=== PATIENT | male | born 1960 | race Caucasian/White ===

== ENCOUNTER 2019-03-18 08:13 | Outpatient (CLI) | payer OTHER ==
[~2019-03-18 08:13] MED LIST: COZAAR50 MG; GILTUSS TR TAB1 EACH PO; NORVASC5 MG; PRILOSEC2.5 MG; ZITHROMAX500 MG PO; ZYRTEC10 MG PO
== END 2019-03-18 08:18 | disposition home or self-care (01) ==
LOC: LAB 08:13
DX: R10.84 Generalized abdominal pain (principal); E03.8 Other specified hypothyroidism; E78.49 Other hyperlipidemia; E11.9 Type 2 diabetes mellitus without complications; K76.0 Fatty (change of) liver, not elsewhere classified

== ENCOUNTER 2019-10-12 14:57 | Emergency (ER) | payer OTHER ==
[~2019-10-12] VITALS: Ht 210.8 cm; Wt 113.4 kg
== END 2019-10-12 18:42 | disposition home or self-care (01) ==
LOC: ER 14:57
DX: M54.5 Low back pain (principal); M47.896 Other spondylosis, lumbar region